=== PATIENT | male | born 1960 | race African-American/Black ===

== ENCOUNTER 2018-07-09 22:56 | Emergency (ER) | payer OTHER ==
[~2018-07-09] VITALS: Ht 167.6 cm; Wt 82.0 kg
[2018-07-09] MEDS ORDERED: ONDANSETRON HCL 4MG/2ML INJ IV STA (23:46)
[2018-07-09] MEDS ORDERED: MORPHINE SULFATE 4 MG/ML CPJ (NOT FOR IM USE) IV STA (23:46)
[2018-07-09] MEDS ORDERED: SODIUM CHLORIDE 0.9% 1,000 ML IV ONE (23:46)
[2018-07-10 00:37] LABS: BASOPHILS % 0.6 % (0.0-2.0); EOSINOPHILS % 1.8 % (0.0-5.0); HEMATOCRIT. 45.9 % (42.0-52.0); HEMOGLOBIN. 15.5 g/dL (14.0-18.0); LYMPHOCYTES % 13.4 % (20.0-50.0); MEAN CORPUSCULAR HEMOGLOBIN 31.2 pg (28.0-32.0); MEAN CORPUSCULAR VOLUME 92.4 fL (80.0-94.0); MEAN PLATELET VOLUME 10.2 fl (7.4-10.4); NEUTROPHILS % 78.2 % (40.0-76.0); PLATELET 288 x1000/uL (130-400); RED BLOOD CELL COUNT 4.96 mill/uL (4.7-6.1); RED CELL DISTRIBUTION WIDTH 14.6 % (11.6-14.6)
[2018-07-10 00:40] LABS: CHLORIDE 104 mEq/L (98-107)
[2018-07-10 00:42] LABS: INR 1.1; PROTHROMBIN TIME 10.7 sec (9.1-11.1)
[2018-07-10] MEDS ORDERED: IOHEXOL-300 100 ML BOTTLE ONE (03:58)
[2018-07-10 09:09] VITALS: BP 142/83
== END 2018-07-10 09:14 | disposition home or self-care (01) ==
LOC: ER 22:56
DX: S80.212A Abrasion, left knee, initial encounter (principal); S20.311A Abrasion of right front wall of thorax, initial encounter; S70.12XA Contusion of left thigh, initial encounter; I10 Essential (primary) hypertension; Z85.9 Personal history of malignant neoplasm, unspecified; V43.52XA Car driver injured in collision with other type car in traffic accident, initial encounter; Y93.89 Activity, other specified; Y92.488 Other paved roadways as the place of occurrence of the external cause
CPT/HCPCS: 36415; 70450; 71260; 72125; 73552; 73562; 74177; 80053; 83690; 85025; 85610; 96374; 96375; 99284; J2270; J2405; J7030; Q9967; Z7610